=== PATIENT | female | born 1955 | race Caucasian/White ===

== ENCOUNTER 2022-12-26 15:10 | Emergency (ER) | payer MEDICARE, SELFPAY ==
[2022-12-26 15:21] VITALS: BP 158/74; PULSE 71; RESP 14; TEMP 36.1; O2SAT 98; BMI 34.3
[2022-12-26] MEDS: KETOROLAC 30 MG/ML VIAL 15 MG IV (15:33)
[2022-12-26] MEDS: ONDANSETRON 4 MG/2 ML INJ IV (15:33)
[2022-12-26 15:54] LABS: Add Manual Diff / Slide Review NO; Basophils Absolute Auto 100 /uL (0-100); Basophils Percent Auto 0.6 % (0-2); Eosinophils Absolute Auto 100 /uL (0-450); Eosinophils Percent Auto 1.3 % (2-4); Hematocrit 42.2 % (36-46); Hemoglobin 14.4 g/dL (12.0-16.0); Lymphocytes Absolute Auto 1300 /uL (1100-4500); Lymphocytes Percent Auto 12.5 % (25-40); Mean Corpuscular HGB Conc 34.1 % (30-36); Mean Corpuscular Hemoglobin 31.2 PG (26-34); Mean Corpuscular Volume 91.6 fL (80-100); Monocytes Absolute Auto 500 /uL (0-900); Neutrophils Absolute Auto 8300 /uL (1500-7000); Neutrophils Percent Auto 80.6 % (50-75); Platelet Count 211 X10^3/uL (150-400); Red Blood Cell Count 4.61 X10^6/uL (4.0-5.2); Red Cell Distribution Width 13.3 % (11.6-14.8); White Blood Cell Count 10.3 X10^3/uL (4.5-11.0)
[2022-12-26 16:03] LABS: Alanine Aminotransferase 19 IU/L (<35); Albumin 4.5 g/dL (3.5-5.0); Albumin Globulin Ratio 1.6 (1.0-2.8); Alkaline Phosphatase 100 U/L (38-126); Aspartate Aminotransferase 25 IU/L (14-36); BUN Creatinine Ratio 30.1 (6-22); Bilirubin Total 0.6 mg/dL (0.2-1.3); Blood Urea Nitrogen 25 mg/dL (7-17); Calcium 8.8 mg/dL (8.4-10.2); Carbon Dioxide 29 mmol/L (22-32); Chloride 102 mmol/L (98-107); Estimated Glomerular Filt Rate > 60 mL/min (>60); Globulin 2.9 g/dL (1.7-4.1); Glucose 164 mg/dL (80-110); HEMOLYSIS < 15 (0-50); Lipase 136 U/L (23-300); Potassium 3.7 mmol/L (3.4-5.1); Sodium 138 mmol/L (137-145); Total Protein 7.4 g/dL (6.3-8.2)
[2022-12-26 18:45] VITALS: BP 181/104; PULSE 72; O2SAT 96
--- NOTE | 2022-12-26 18:51 | DI.CT.S_ITS ---
PROCEDURE: CT KIDNEY URETER BLADDER (KUB) INDICATIONS: eval for stone TECHNIQUE: Axial sections were acquired from the lung bases to the pubic symphysis. Coronal and sagittal reformats were performed. For radiation dose reduction, the following was used: automated exposure control, adjustment of mA and/or kV according to patient size. COMPARISON: None. FINDINGS: Image quality: Excellent. Lung bases: Unremarkable. Heart: No significant findings. URINARY: Right Kidney: No stones or hydronephrosis. Right Ureter: No hydroureter. Left Kidney: Moderate hydronephrosis is present. 5 mm inferior pole calcification, Hounsfield units 216. There is prominent perinephric stranding. Left Ureter: Mild hydroureter is present. 3 mm calcification is present at the ureterovesicular junction. Bladder: Normal wall thickness. No stones. ABDOMEN: Liver: Unremarkable. Gallbladder: Multiple luminal stones are present without wall thickening. Biliary ducts: Unremarkable. Pancreas: Unremarkable. Spleen: Unremarkable. Adrenal Glands: Unremarkable. Stomach and Bowel: Stomach, small bowel loops, and colon are unremarkable. Peritoneum: No abnormal intraperitoneal fluid. No free air. Ventral Wall: No hernia. Abdominal Nodes: No enlarged retroperitoneal or mesenteric lymph nodes. Vessels: Aorta and inferior vena cava are normal in size. PELVIS: Pelvic Organs: 2.4 cm simple left ovarian cyst. Pelvic Nodes: Unremarkable. Miscellaneous: No inguinal hernias are seen. Bones: Unremarkable. IMPRESSION: [id number] left hydronephrosis and hydroureter with 3 mm distal right ureteral calculus at the ureterovesicular junction. Prominent perinephric stranding is present. Nonobstructing left renal calculus. Simple left ovarian cyst. Dictated by: Ana María Cannon M.D. on 12/26/2022 at 19:15 Approved by: Ana María Cannon M.D. on 12/26/2022 at 19:17
--- NOTE | 2022-12-26 18:51 | ED.GENADULT ---
HPI - General Adult General Chief complaint: Urogenital-Female Stated complaint: kidney stone Time Seen by Provider: 12/26/22 18:43 Source: patient Mode of arrival: Ambulatory Limitations: no limitations History of Present Illness HPI narrative: Patient is a 67-year-old female who is here for evaluation of left-sided discomfort that she states is consistent prior history of kidney stones. She is had multiple kidney stones in the past. She has needed lithotripsy in the past. She denies any fevers. No vomiting. No change in bowel habits. Related Data Previous Rx's Medication Instructions Recorded ketorolac 10 mg tablet 10 mg PO QID PRN pain 5 days #20 12/26/22 tabs ondansetron 4 mg disintegrating 4 mg PO Q6H PRN nausea and 12/26/22 tablet vomiting #10 tabs Allergies Allergy/AdvReac Type Severity Reaction Status Date / Time lisinopril Allergy Severe Anxiety Verified 12/26/22 18:46 Sulfa (Sulfonamide Allergy Verified 12/26/22 15:21 Antibiotics) tolmetin [From Tolectin] Allergy Verified 12/26/22 15:21 Review of Systems Constitutional Constitutional: Reports system reviewed and no additional complaints, except as documented Gastrointestinal Gastrointestinal: Reports system reviewed and no additional complaints, except as documented Genitourinary Genitourinary: Reports system reviewed and no additional complaints, except as documented Integumentary/Breasts Skin/Breast: Reports system reviewed and no additional complaints, except as documented Hematologic/Lymphatic On Anticoagulants: No Patient History Social History Smoking Status: Unknown if ever smoked Smoking Status: Unknown if ever smoked alcohol intake frequency: holidays/special occasions only Substance Use Type: does not use Exam Initial Vital Signs Initial Vital Signs: Vital Signs Temperature 97.0 F L 12/26/22 15:21 Pulse Rate 71 12/26/22 15:21 Respiratory Rate 14 12/26/22 15:21 Blood Pressure 158/74 H 12/26/22 15:21 Pulse Oximetry 98 12/26/22 15:21 Oxygen Delivery Method Room Air 12/26/22 15:21 Const General: cooperative, comfortable and No ill appearing HENMT Head: normal to inspection and normocephalic Resp Effort & Inspection: normal respiratory effort Cardio Rate: regular rate Skin General: no rashes or lesions noted Neuro General: patient alert and patient awake Extrem General: capillary refill normal Course Orders Ordered: ED Orders 12/26/22 15:38 Complete Blood Count AUTO DIFF Stat Comprehensive Metabolic Panel Stat Lipase Stat 12/26/22 18:51 CT kidney ureter bladder (KUB) Stat Discontinued Medications Ketorolac Tromethamine (Ketorolac 30 Mg/Ml Vial) 15 mg IV NOW ONE Stop: 12/26/22 15:30 Last Admin: 12/26/22 15:33 Dose: 15 mg Documented By: RADHA Ketorolac Tromethamine (Ketorolac 30 Mg/Ml Vial) 30 mg IV NOW ONE Stop: 12/26/22 18:52 Last Admin: 12/26/22 19:19 Dose: 30 mg Documented By: ADOLFO Ondansetron HCl (Ondansetron 4 Mg/2 Ml Inj) 4 mg IV NOW PRN PRN Reason: Nausea And Vomiting Last Admin: 12/26/22 15:33 Dose: 4 mg Documented By: RADHA Vital Signs Vital signs: Vital Signs - 8 hr 12/26/22 18:45 12/26/22 18:45 12/26/22 19:04 Pulse Rate 72 72 Blood Pressure 181/104 H Pulse Oximetry 96 97 Oxygen Delivery Method Room Air 12/26/22 19:30 12/26/22 19:52 12/26/22 19:52 Pulse Rate 73 73 Blood Pressure 169/77 H Pulse Oximetry 97 Oxygen Delivery Method Medical Decision Making Lab Data Lab results reviewed: Yes I reviewed the patient's lab results. 12/26/22 15:38 12/26/22 15:38 Labs: Lab Results 12/26/22 12/26/22 12/26/22 Range/Units 15:30 15:38 15:38 WBC 10.3 (4.5-11.0) X10^3/uL RBC 4.61 (4.0-5.2) X10^6/uL Hgb 14.4 (12.0-16.0) g/dL Hct 42.2 (36-46) % MCV 91.6 (80-100) fL MCH 31.2 (26-34) PG MCHC 34.1 (30-36) % RDW 13.3 (11.6-14.8) % Plt Count 211 (150-400) X10^3/uL Neut % (Auto) 80.6 H (50-75) % Lymph % (Auto) 12.5 L (25-40) % [place] % (Auto) 5.0 (3-14) % Eos % (Auto) 1.3 L (2-4) % Baso % (Auto) 0.6 (0-2) % Neut # (Auto) 8300 H (5592-6815) /uL Lymph # (Auto) 1300 (4860-5196) /uL [place] # (Auto) 500 (0-900) /uL Eos # (Auto) 100 (0-450) /uL Baso # (Auto) 100 (0-100) /uL Sodium 138 (137-145) mmol/L Potassium 3.7 (3.4-5.1) mmol/L Chloride 102 (98-107) mmol/L Carbon Dioxide 29 (22-32) mmol/L BUN 25 H (7-17) mg/dL Creatinine 0.83 (0.52-1.04) mg/dL Estimated GFR > 60 (>60) mL/min BUN/Creatinine Ratio 30.1 H (6-22) Glucose 164 H (80-110) mg/dL Calcium 8.8 (8.4-10.2) mg/dL Total Bilirubin 0.6 (0.2-1.3) mg/dL AST 25 (14-36) IU/L ALT 19 (<35) IU/L Alkaline Phosphatase 100 (38-126) U/L Total Protein 7.4 (6.3-8.2) g/dL Albumin 4.5 (3.5-5.0) g/dL Globulin 2.9 (1.7-4.1) g/dL Albumin/Globulin Ratio 1.6 (1.0-2.8) Lipase 136 (23-300) U/L Urine Color Yellow Urine Appearance Cloudy Urine pH 8.0 (4.5-8.0) Ur Specific [place] 1.020 (1.000-1.035) Urine Protein Negative (Negative) Urine Glucose (UA) Negative (Negative) g/dL Urine Ketones Trace H (NEGATIVE) Urine Occult Blood 3+ H (Negative) Urine Nitrate Negative (Negative) Urine Bilirubin Negative (NEGATIVE) Urine Urobilinogen 1.0 (0.2) E.U./dL Ur Leukocyte Esterase Negative (NEGATIVE) Urine RBC 10-30/hpf H (0-5/HPF) Urine WBC 0-1/hpf (0-5/HPF) Ur Squamous Epith Cells 1-5 /hpf (0-5/HPF) Amorphous Sediment 2+ Urine Bacteria None seen (None) Ur Culture Indicated? Cult not indicated Imaging Data CT scan - abdomen/pelvis: Radiologist's Impression: PROCEDURE:? CT KIDNEY URETER BLADDER (KUB) ? INDICATIONS:? eval for stone ? TECHNIQUE:? Axial sections were acquired from the lung bases to the pubic symphysis.? Coronal and sagittal reformats were performed.? For radiation dose reduction, the following was used: ?automated exposure control, adjustment of mA and/or kV according to patient size.? ? COMPARISON:? None. ? FINDINGS:? Image quality:? Excellent.? ? Lung bases:? Unremarkable.? ? Heart:? No significant findings. ? URINARY: Right Kidney: ? No stones or hydronephrosis.? Right Ureter:? No hydroureter.? ? Left Kidney:? Moderate hydronephrosis is present.? 5 mm inferior pole calcification, Hounsfield units 216.? There is prominent perinephric stranding.? Left Ureter:? Mild hydroureter is present.? 3 mm calcification is present at the ureterovesicular junction.? ? Bladder:? Normal wall thickness. No stones. ? ? ? ABDOMEN: Liver:? Unremarkable.? ? Gallbladder:? Multiple luminal stones are present without wall thickening.? ? Biliary ducts:? Unremarkable.? ? Pancreas:? Unremarkable.? ? Spleen:? Unremarkable.? ? Adrenal Glands:? Unremarkable.? ? ? Stomach and Bowel:? Stomach, small bowel loops, and colon are unremarkable.? Peritoneum:? No abnormal intraperitoneal fluid.? No free air.? ? Ventral Wall: ? No hernia.? Abdominal Nodes:? No enlarged retroperitoneal or mesenteric lymph nodes.? Vessels:? Aorta and inferior vena cava are normal in size.? ? PELVIS: Pelvic Organs:? 2.4 cm simple left ovarian cyst. Pelvic Nodes: Unremarkable. Miscellaneous: No inguinal hernias are seen. ? ? ? Bones:? Unremarkable. ? IMPRESSION:? ? [id number] left hydronephrosis and hydroureter with 3 mm distal right ureteral calculus at the ureterovesicular junction.? Prominent perinephric stranding is present. ? Nonobstructing left renal calculus. ? Simple left ovarian cyst. MDM Narrative Medical decision making narrative: Patient does have a left-sided distal ureteral stone which does explain her presenting symptoms. Is afebrile. Kidney functions unremarkable. No indication of urinary tract infection. No indication for acute urologic consultation. We will discharge patient home with symptom control. She was given return precautions. She expressed understanding and agreement. Discharge Plan Departure Patient Disposition: Home Clinical Impression: Renal colic on left side Instructions: DI for Kidney Stones Activity Restrictions/Additional Instructions: I do recommend that you increase your fluid intake. You can contact the urologist at the number provided below for a follow-up. Return to the emergency department for new symptoms. Prescriptions: New ondansetron 4 mg tablet,disintegrating 4 mg PO Q6H PRN (Reason: nausea and vomiting) Qty: 10 0RF ketorolac 10 mg tablet 10 mg PO QID PRN (Reason: pain) 5 Days Qty: 20 0RF Referrals: Zacarias Szymanski MD [Physician] - Yesenia Álvarez MD [Primary Care Provider] - Stand Alone Forms: Patient Portal/API
[2022-12-26 18:58] LABS: Appearance Urine UA CLOUDY; Bilirubin Urine UA NEGATIVE (NEGATIVE); Color Urine UA YELLOW; Glucose Urine UA NEGATIVE (Negative); Ketones Urine UA TRACE (NEGATIVE); Leukocyte Esterase Urine UA NEGATIVE (NEGATIVE); Nitrite Urine UA NEGATIVE (Negative); Occult Blood Urine UA 3+ (Negative); Protein Urine UA NEGATIVE (Negative)
[2022-12-26 19:04] VITALS: PULSE 72; O2SAT 97
[2022-12-26 19:16] LABS: RBC Urine 10-30/HPF (0-5/HPF); Squamous Epithelial Cell Urine 1-5 /HPF (0-5/HPF); WBC Urine 0-1/HPF (0-5/HPF)
[2022-12-26 19:17] LABS: Bacteria Urine None Seen
[2022-12-26 19:18] LABS: Amorphous Sediment Urine 2+; Culture Indicated Urine Cult Not Indicated
[2022-12-26] MEDS: KETOROLAC 30 MG/ML VIAL IV (19:19)
[2022-12-26 19:30] VITALS: PULSE 73; O2SAT 97
[2022-12-26 19:52] VITALS: BP 169/77; PULSE 73
--- NOTE | 2022-12-26 20:09 | PC.NURSE ---
Pt complaining of left flank pain, states has history of kidney stones and states feels similar.
== END 2022-12-26 19:50 | disposition home or self-care (01) ==
PROVIDERS: Emergency Medicine; Emergency Provider Emergency Medicine; PCP Student in an Organized Health Care Education/Training Program
DX: N23 Unspecified renal colic (principal); Z87.442 Personal history of urinary calculi
CPT/HCPCS: 36415; 74176; 80053; 81001; 83690; 85025; 96374; 96375; 96376; 99284; J1885; J2405

== ENCOUNTER 2024-03-03 11:55 | Emergency (ER) | payer MEDICARE, SELFPAY ==
[2024-03-03 11:59] VITALS: O2SAT 97
[2024-03-03 12:00] VITALS: BP 206/93; PULSE 72; O2SAT 96
[2024-03-03 12:02] VITALS: BP 206/93; PULSE 78; RESP 18; TEMP 36.7; O2SAT 97; BMI 33.6
--- NOTE | 2024-03-03 12:14 | DI.RAD.S_ITS ---
PROCEDURE: XR CHEST 1V INDICATIONS: Chest pain TECHNIQUE: One view of the chest was acquired. COMPARISON: None. FINDINGS: Surgical changes and devices: None. Lungs and pleura: Lungs are clear. No pleural effusions or pneumothorax. Mediastinum: Mediastinal contours appear normal. Heart size is normal. Bones and chest wall: No suspicious bony lesions. Overlying soft tissues appear unremarkable. IMPRESSION: No acute cardiopulmonary abnormality is seen. Dictated by: Cheyanne Sharma M.D. on 03/03/2024 at 13:01 Approved by: Cheyanne Sharma M.D. on 03/03/2024 at 13:01
[2024-03-03 12:20] LABS: Add Manual Diff / Slide Review NO; Basophils Absolute Auto 0 /uL (0-100); Basophils Percent Auto 0.2 % (0-2); Eosinophils Absolute Auto 200 /uL (0-450); Eosinophils Percent Auto 4.1 % (2-4); Hematocrit 39.8 % (36-46); Hemoglobin 13.7 g/dL (12.0-16.0); Lymphocytes Absolute Auto 1400 /uL (1100-4500); Lymphocytes Percent Auto 29.8 % (25-40); Mean Corpuscular HGB Conc 34.4 % (30-36); Mean Corpuscular Hemoglobin 31.7 PG (26-34); Mean Corpuscular Volume 92.3 fL (80-100); Monocytes Absolute Auto 300 /uL (0-900); Monocytes Percent Auto 5.9 % (3-14); Neutrophils Absolute Auto 2900 /uL (1500-7000); Platelet Count 204 X10^3/uL (150-400); Red Blood Cell Count 4.32 X10^6/uL (4.0-5.2); Red Cell Distribution Width 13.2 % (11.6-14.8); White Blood Cell Count 4.9 X10^3/uL (4.5-11.0)
--- NOTE | 2024-03-03 12:26 | ED.GENADULT ---
HPI - General Adult General Chief complaint: Hypertension Stated complaint: High Blood Pressure sent from doctor Time Seen by Provider: 03/03/24 12:00 Source: patient Mode of arrival: Ambulatory History of Present Illness HPI narrative: Patient is a 68-year-old female with a history of high blood pressure. Last year she was on a combination of lisinopril and hydrochlorothiazide but it sounds like she had an issue with angioedema so she was taken off these medicines. She was started on losartan at the beginning of the year. It was not controlling her blood pressure adequately so about a month ago it was doubled. She has been taking as directed. She continues to have high blood pressures. She occasionally has some pressure on her chest and shortness of breath with exertion but no lower extremity swelling. She contacted her primary doctor today who advised she come to the emergency department for further evaluation. Related Data Home Medications Medication Instructions Recorded Confirmed losartan 50 mg tablet 100 mg PO DAILY 03/03/24 03/03/24 Previous Rx's Medication Instructions Recorded ondansetron 4 mg disintegrating 4 mg PO Q6H PRN nausea and 12/26/22 tablet vomiting #10 tabs hydrochlorothiazide 25 mg tablet 25 mg PO DAILY #30 tabs 03/03/24 Allergies Allergy/AdvReac Type Severity Reaction Status Date / Time lisinopril Allergy Severe Anxiety Verified 12/26/22 18:46 Sulfa (Sulfonamide Allergy Verified 12/26/22 15:21 Antibiotics) tolmetin [From Tolectin] Allergy Verified 12/26/22 15:21 Review of Systems Review of Systems Narrative: See HPI Patient History Social History Smoking Status: Unknown if ever smoked Smoking Status: Unknown if ever smoked alcohol intake frequency: holidays/special occasions only Substance Use Type: does not use Exam Initial Vital Signs Initial Vital Signs: Vital Signs Pulse Oximetry 97 03/03/24 11:59 Const General: cooperative, comfortable and No ill appearing HENPA Head: normal to inspection and normocephalic Resp Effort & Inspection: normal respiratory effort Auscultation: clear to auscultation bilaterally Cardio Rate: regular rate Rhythm: regular rhythm GI Inspection: normal to inspection and non-distended Skin General: no rashes or lesions noted Neuro General: patient alert and patient awake Extrem General: No edema Course Orders Ordered: ED Orders 03/03/24 12:09 Complete Blood Count AUTO DIFF Stat Comprehensive Metabolic Panel Stat Lipase Stat NT-proBNP (BNP-Adult 18+) Stat Troponin & CK Cardiac Panel Stat 03/03/24 12:14 XR chest 1V Stat EKG-12 Lead Stat Vital Signs Vital signs: Vital Signs - 8 hr 03/03/24 11:59 03/03/24 12:00 03/03/24 12:00 Temperature Pulse Rate 72 Respiratory Rate Blood Pressure 206/93 H Pulse Oximetry 97 96 Oxygen Delivery Method 03/03/24 12:02 03/03/24 12:30 03/03/24 12:31 Temperature 98.1 F Pulse Rate 78 65 Respiratory Rate 18 Blood Pressure 206/93 H 184/96 H Pulse Oximetry 97 98 Oxygen Delivery Method Room Air 03/03/24 12:31 03/03/24 13:00 03/03/24 13:00 Temperature Pulse Rate 66 62 Respiratory Rate Blood Pressure 168/86 H Pulse Oximetry 98 93 Oxygen Delivery Method Medical Decision Making Lab Data Lab results reviewed: Yes I reviewed the patient's lab results. 03/03/24 12:09 03/03/24 12:09 Labs: Lab Results 03/03/24 Range/Units 12:09 WBC 4.9 (4.5-11.0) X10^3/uL RBC 4.32 (4.0-5.2) X10^6/uL Hgb 13.7 (12.0-16.0) g/dL Hct 39.8 (36-46) % MCV 92.3 (80-100) fL MCH 31.7 (26-34) PG MCHC 34.4 (30-36) % RDW 13.2 (11.6-14.8) % Plt Count 204 (150-400) X10^3/uL Neut % (Auto) 60.0 (50-75) % Lymph % (Auto) 29.8 (25-40) % [place] % (Auto) 5.9 (3-14) % Eos % (Auto) 4.1 H (2-4) % Baso % (Auto) 0.2 (0-2) % Neut # (Auto) 2900 (1783-7281) /uL Lymph # (Auto) 1400 (5803-2289) /uL [place] # (Auto) 300 (0-900) /uL Eos # (Auto) 200 (0-450) /uL Baso # (Auto) 0 (0-100) /uL Sodium 141 (137-145) mmol/L Potassium 3.7 (3.4-5.1) mmol/L Chloride 110 H (98-107) mmol/L Carbon Dioxide 27 (22-32) mmol/L BUN 15 (7-17) mg/dL Creatinine 0.55 (0.52-1.04) mg/dL Estimated GFR > 60 (>60) mL/min BUN/Creatinine Ratio 27.3 H (6-22) Glucose 130 H (80-110) mg/dL Calcium 9.3 (8.4-10.2) mg/dL Total Bilirubin 0.6 (0.2-1.3) mg/dL AST 25 (14-36) IU/L ALT 19 (<35) IU/L Alkaline Phosphatase 112 (38-126) U/L Total Creatine Kinase 42 (30-135) U/L Troponin I < 0.012 (0.01-0.034) ng/mL NT-Pro-B Natriuret Pep 86 (<125) pg/mL Total Protein 7.1 (6.3-8.2) g/dL Albumin 4.4 (3.5-5.0) g/dL Globulin 2.7 (1.7-4.1) g/dL Albumin/Globulin Ratio 1.6 (1.0-2.8) Lipase 112 (23-300) U/L Imaging Data Chest x-ray: Radiologist's Impression: PROCEDURE: XR CHEST 1V INDICATIONS: Chest pain TECHNIQUE: One view of the chest was acquired. COMPARISON: None. FINDINGS: Surgical changes and devices: None. Lungs and pleura: Lungs are clear. No pleural effusions or pneumothorax. Mediastinum: Mediastinal contours appear normal. Heart size is normal. Bones and chest wall: No suspicious bony lesions. Overlying soft tissues appear unremarkable. IMPRESSION: No acute cardiopulmonary abnormality is seen. ECG Data Attestation: I personally reviewed and interpreted this ECG as follows: Interpretation: Sinus rhythm Ventricular rate is 68 LVH Normal QRS Nonspecific ST T wave changes MDM Narrative Medical decision making narrative: Patient has a history of hypertension. Her workup today is unremarkable. Low suspicion for ACS, clinically not in heart failure, is not in renal failure. Low suspicion for intracranial hemorrhage. Plan will be is to add hydrochlorothiazide onto her current regimen. This was sent to the pharmacy of her choice. She was given return precautions and follow-up instructions. She expressed understanding and agreement. Discharge Plan Departure Patient Disposition: Home Clinical Impression: Hypertension Instructions: DI for High Blood Pressure Activity Restrictions/Additional Instructions: Continue to take your losartan as directed. We are going to add hydrochlorothiazide onto your blood pressure management. Continue to take your blood pressure at home. Contact your primary doctor for a follow-up. Prescriptions: New hydrochlorothiazide 25 mg tablet 25 mg PO DAILY Qty: 30 2RF No Action losartan 50 mg tablet 100 mg PO DAILY ondansetron 4 mg tablet,disintegrating 4 mg PO Q6H PRN (Reason: nausea and vomiting) Qty: 10 0RF Referrals: Yesenia Álvarez MD [Primary Care Provider] - Stand Alone Forms: Patient Portal/API
[2024-03-03 12:30] VITALS: PULSE 65; O2SAT 98
[2024-03-03 12:30] LABS: Alanine Aminotransferase 19 IU/L (<35); Albumin 4.4 g/dL (3.5-5.0); Albumin Globulin Ratio 1.6 (1.0-2.8); Alkaline Phosphatase 112 U/L (38-126); Aspartate Aminotransferase 25 IU/L (14-36); BUN Creatinine Ratio 27.3 (6-22); Bilirubin Total 0.6 mg/dL (0.2-1.3); Blood Urea Nitrogen 15 mg/dL (7-17); Calcium 9.3 mg/dL (8.4-10.2); Carbon Dioxide 27 mmol/L (22-32); Chloride 110 mmol/L (98-107); Creatine Kinase 42 U/L (30-135); Estimated Glomerular Filt Rate > 60 mL/min (>60); Globulin 2.7 g/dL (1.7-4.1); Glucose 130 mg/dL (80-110); HEMOLYSIS < 15 (0-50); Lipase 112 U/L (23-300); Potassium 3.7 mmol/L (3.4-5.1); Sodium 141 mmol/L (137-145); Total Protein 7.1 g/dL (6.3-8.2)
[2024-03-03 12:31] VITALS: BP 184/96; PULSE 66; O2SAT 98
[2024-03-03 12:41] LABS: NT-proBNP (BNP-Adult 18+) 86 pg/mL (<125); Troponin I < 0.012 ng/mL (0.01-0.034)
[2024-03-03 13:00] VITALS: BP 168/86; PULSE 62; O2SAT 93
== END 2024-03-03 13:19 | disposition home or self-care (01) ==
PROVIDERS: Emergency Provider Emergency Medicine; PCP Student in an Organized Health Care Education/Training Program
DX: I10 Essential (primary) hypertension (principal)
CPT/HCPCS: 36415; 71045; 80053; 82550; 83690; 83880; 84484; 85025; 93005; 93010; 99284